=== PATIENT | female | born 1950 | race Caucasian/White ===

== ENCOUNTER 2019-02-09 12:51 | Inpatient (IN) | payer OTHER ==
[2019-02-09 17:22] VITALS: BMI 32.8
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
[2019-02-09] MEDS ORDERED: METHADONE HCL 10 MG TABLET (FOR DETOX USE ONLY) PO ONE (19:23)
[2019-02-09] MEDS ORDERED: cloNIDine HCL 0.1 MG TABLET PO PRN (19:23)
[2019-02-09] MEDS ORDERED: MAGNESIUM HYDROX 2400MG/30ML ORAL SUSPENSION 30 ML CUP PO PRN (19:24)
[2019-02-09] MEDS ORDERED: MENTHOL/PHENOL 1 EACH UD MM PRN (19:24)
[2019-02-09] MEDS ORDERED: MELATONIN 5 MG TABLETS PO PRN (19:24)
[2019-02-09] MEDS ORDERED: hydrOXYzine PAMOATE 25 MG CAPSULE (FP) PO PRN (19:24)
[2019-02-09] MEDS ORDERED: ACETAMINOPHEN 325 MG TABLET (FP) PO PRN (19:24)
[2019-02-09] MEDS ORDERED: IBUPROFEN 400 MG TABLET (FP) PO PRN (19:24)
[2019-02-09] MEDS ORDERED: BISMUTH SUBSALICYLATE 524 MG/30 ML UD PO PRN (19:24)
[2019-02-09] MEDS ORDERED: MAG HYDROX/AL HYDROX/SIMETH 30 ML UNIT-DOSE CUP PO PRN (19:24)
[2019-02-09] MEDS ORDERED: NITROGLYCERIN SUBLINGUAL 1/150 0.4 MG TAB SL PRN (19:27)
[2019-02-09] MEDS ORDERED: NICOTINE 7 MG/24 HOURS TOPICAL PATCH TD SCH (19:30)
--- NOTE | 2019-02-09 20:07 | PN ---
Teaching Attending Note Name of Resident: Basia Montez ATTENDING PHYSICIAN STATEMENT I saw and evaluated the patient. I reviewed the resident's note and discussed the case with the resident. I agree with the resident's findings and plan as documented. SUBJECTIVE: 68 yo with long h/o heroin use, states she has been "skin popping"- uses insulin syringe to place heroin in upper arm. Was recently treated for abd abcess with antibiotics and drainage tube at [facility]- needs to go back for f /u and possible surgery OBJECTIVE: Vital Signs - 24 hr 02/09/19 02/09/19 17:13 17:47 Temperature 97.3 F L 97.3 F L Pulse Rate 75 75 Respiratory 18 18 Rate Blood Pressure 122/80 122/80 abd- soft, area of abscess without induration or signs of infection ASSESSMENT AND PLAN: OUD- methdone detox protocol no evidence of recurrence of abscess- f/u [facility] after discharge
[2019-02-09] MEDS: INSULIN SLIDING SCALE (NOVOLOG) 1 VIAL SQ SCH (21:49)
[2019-02-09] MEDS ORDERED: THIAMINE HCL 100 MG TABLET (FP) PO SCH (22:00)
[2019-02-10] MEDS ORDERED: metFORMIN HCL 500 MG TABLET (FP) PO SCH (07:00)
[2019-02-10] MEDS: INSULIN SLIDING SCALE (NOVOLOG) 1 VIAL SQ SCH (07:55)
[2019-02-10] MEDS ORDERED: METHADONE HCL 5 MG TABLET (FOR DETOX USE ONLY) ONE (08:31)
[2019-02-10] MEDS ORDERED: METHADONE HCL 10 MG TABLET (FOR DETOX USE ONLY) ONE (08:31)
[2019-02-10 09:13] VITALS: BP 148/78; PULSE 79; TEMP 98.2
[2019-02-10] MEDS ORDERED: METHADONE (DETOX) 20 MG, METHADONE (DETOX) 5 MG PO ONE (10:00)
[2019-02-10] MEDS ORDERED: PRENATAL VITAMINS W/ FOLIC ACID TABLET (FP) PO SCH (10:00)
[2019-02-10] MEDS ORDERED: LISINOPRIL 10 MG TABLET (FP) PO SCH (10:00)
--- NOTE | 2019-02-10 10:50 | CONSULT ---
[facility] Psychiatric Consult - Data Date of interview: 02/10/19 Admission source: [facility] Identifying data: [employer] approached patient for psychiatric consultation. Patient stated to staff, " I am leaving today. I do not need to see you. Thankyou." Psychiatric consultation refused.
[2019-02-10 12:32] LABS: HYALINE CASTS 35 /lpf (0-8); URINE APPEARANCE CLOUDY; URINE BACTERIA 175.6 /hpf (NEGATIVE); URINE BILIRUBIN 1+ (NEGATIVE); URINE COLOR DK YELLOW; URINE GLUCOSE (UA) NEGATIVE (NEGATIVE); URINE KETONE NEGATIVE (NEGATIVE); URINE LEUK ESTERASE TRACE (NEGATIVE); URINE NITRITE POSITIVE (NEGATIVE); URINE PROTEIN 1+ (NEGATIVE); URINE RBC 3 /hpf (0-4); URINE WBC 10 /hpf (0-5)
--- NOTE | 2019-02-10 13:17 | DS ---
[facility] Detox Discharge Summary Admission Date: 02/09/19 Discharge Date: 02/10/19 - History Present History: Opioid Dependence Additional Comments: 68 years old female admitted on 02/09/19 for opiate withdrawal sx alert no acute distress ambulating with walker speech clearly denies suicidal ideation insists to leave the detox unit that "family issues" patient refuses to disclosure the matter of family that the patient determines to leave the detox case discussed with the counselor that transportation will be provided from detox to home Pertinent Past History: hypertension diabetes II asthma - Physical Exam Results Vital Signs: Vital Signs Temperature 98.2 F 02/10/19 09:12 Pulse Rate 79 02/10/19 09:12 Respiratory Rate 19 02/10/19 09:12 Blood Pressure 148/78 02/10/19 09:12 O2 Sat by Pulse Oximetry (%) Pertinent Admission Physical Exam Findings: opiate withdrawal sx Laboratory Last Values POC Glucometer 92 UNITS (80-120) 02/09/19 20:26 Urine Color Dk yellow 02/09/19 09:45 Urine Appearance Cloudy 02/09/19 09:45 Urine pH 5.0 (5.0-8.0) D 02/09/19 09:45 Ur Specific [place] 1.037 (1.010-1.035) H 02/09/19 09:45 Urine Protein 1+ (NEGATIVE) H 02/09/19 09:45 Urine Glucose (UA) Negative (NEGATIVE) 02/09/19 09:45 Urine Ketones Negative (NEGATIVE) 02/09/19 09:45 Urine Blood Negative (NEGATIVE) 02/09/19 09:45 Urine Nitrite Positive (NEGATIVE) H 02/09/19 09:45 Urine Bilirubin 1+ (NEGATIVE) H 02/09/19 09:45 Urine Urobilinogen 1.0 mg/dL (0.2-1.0) 02/09/19 09:45 Ur Leukocyte Esterase Trace (NEGATIVE) 02/09/19 09:45 Urine WBC (Auto) 10 /hpf (0-5) 02/09/19 09:45 Urine RBC (Auto) 3 /hpf (0-4) 02/09/19 09:45 Urine Casts (Auto) 35 /lpf (0-8) 02/09/19 09:45 U Epithel Cells (Auto) 14.0 /HPF (0-5/HPF) 02/09/19 09:45 Urine Bacteria (Auto) 175.6 /hpf (NEGATIVE) 02/09/19 09:45 POC Urine HCG, Qual Negative 02/09/19 17:47 lab noted asymptomatic uti - Treatment Hospital Course: Detox Protocol Followed, Responded well Patient has Accepted a Rehab Referral to: [facility] - Medication Discharge Medications: Ambulatory Orders Gabapentin [Neurontin -] 300 mg PO BID #60 capsule 05/21/15 Lisinopril [Prinivil] 10 mg PO DAILY #60 tablet 05/21/15 metFORMIN HCL [Glucophage -] 500 mg PO BID #60 tablet 05/21/15 Nitroglycerin [Nitrostat] 0.4 mg SL ASDIR PRN 11/16/15 Naproxen [Naprosyn -] 500 mg PO BID #14 tablet 01/27/16 - Diagnosis (1) Opioid dependence with withdrawal Status: Acute (2) Asthma Status: Chronic Qualifiers: Asthma severity: mild Asthma persistence: intermittent Asthma complication type: with status asthmaticus Qualified Code(s): J45.22 - Mild intermittent asthma with status asthmaticus (3) Hypertension Status: Chronic Qualifiers: Hypertension type: essential hypertension (4) Nicotine dependence Status: Acute Qualifiers: Nicotine product type: cigarettes Substance use status: in withdrawal Qualified Code(s): F17.213 - Nicotine dependence, cigarettes, with withdrawal (5) Type II diabetes mellitus Status: Chronic Qualifiers: 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
[2019-02-10 15:33] LABS: URINE CRYSTALS CALCIUM OXALATE=1+ /hpf
[2019-02-11] MEDS ORDERED: METHADONE HCL 10 MG TABLET (FOR DETOX USE ONLY) PO ONE (10:00)
[2019-02-12] MEDS ORDERED: METHADONE (DETOX) 10 MG, METHADONE (DETOX) 5 MG PO ONE (10:00)
[2019-02-13] MEDS ORDERED: METHADONE HCL 10 MG TABLET (FOR DETOX USE ONLY) PO ONE (10:00)
[2019-02-14] MEDS ORDERED: METHADONE HCL 5 MG TABLET (FOR DETOX USE ONLY) PO ONE (06:00)
== END 2019-02-10 11:10 | disposition left against medical advice (07) | DRG 894 ==
LOC: YASAS 12:51 → Y3N 19:39
PROVIDERS: ADMIT Surgery; ATTEND Surgery
PROC: HZ2ZZZZ Detoxification Services for Substance Abuse Treatment (ICD-10-PCS; principal; 2019-02-09)
DX: F11.23 Opioid dependence with withdrawal (principal); J45.22 Mild intermittent asthma with status asthmaticus; N39.0 Urinary tract infection, site not specified; F17.213 Nicotine dependence, cigarettes, with withdrawal; F51.05 Insomnia due to other mental disorder; F32.9 Major depressive disorder, single episode, unspecified; I10 Essential (primary) hypertension; E11.42 Type 2 diabetes mellitus with diabetic polyneuropathy; Z79.84 Long term (current) use of oral hypoglycemic drugs; M17.0 Bilateral primary osteoarthritis of knee; R00.0 Tachycardia, unspecified; Z90.710 Acquired absence of both cervix and uterus; Z96.653 Presence of artificial knee joint, bilateral; Z91.14 Patient's other noncompliance with medication regimen
CPT/HCPCS: 81003; 81025; 82962; J0735

== ENCOUNTER 2019-04-14 10:54 | Inpatient (IN) | payer OTHER | END 2019-04-15 14:32 | disposition home or self-care (01) | LOC: YASAS 10:54 → Y6N 16:46 ==

== ENCOUNTER 2019-05-15 12:07 | Inpatient (IN) | payer OTHER ==
[2019-05-15 13:16] VITALS: BMI 32.8
--- NOTE | 2019-05-15 15:00 | HP ---
COWS - Scale Resting Pulse: 0= ID 80 or Below Sweatin= Chills/Flushing Restless Observation: 1= Difficult to Sit Still Pupil Size: 0= Normal to Room Light Bone or Joint Aches: 1= Mild Discomfort Runny Nose/ Eye Tearin= Runny Nose/Eyes GI Upset > 30mins: 3= Vomiting/Diarrhea Tremor Observation: 2= Slight Tremor Visible Yawning Observation: 0= None Anxiety or Irritability: 2=Irritable/Anxious Goose Flesh Skin: 0=Smooth Skin COWS Score: 12 CIWA Score - Admission Criteria OASAS Guidelines: Admission for Medically Managed Detox: Requires at least one of the followin. CIWA greater than 12 2. Seizures within the past 24 hours 3. Delirium tremens within the past 24 hours 4. Hallucinations within the past 24 hours 5. Acute intervention needed for co occurring medical disorder 6. Acute intervention needed for co occurring psychiatric disorder 7. Severe withdrawal that cannot be handled at a lower level of care (continued vomiting, continued diarrhea, abnormal vital signs) requiring intravenous medication and/or fluids 8. Admitting History and Physical - Smoking History Smoking history: Current every day smoker Have you smoked in the past 12 months: Yes Aproximately how many cigarettes per day: 5 - Alcohol/Substance Use Hx Alcohol Use: No Admission ROS S - HPI Chief Complaint: Kathleen Agarwal is 68 year old female presenting for heroin abuse. Allergies/Adverse Reactions: Allergies Allergy/AdvReac Type Severity Reaction Status Date / Time No Known Allergies Allergy Verified 05/15/19 13:09 History of Present Illness: Kathleen Agarwal is 68 year old female presenting for heroin abuse. Heroin: 5 bags daily. Daily user. Endorses IVDU. has had an abscess in her arm several years ago. Denies history of overdoses. Does not have a Narcan kit at home. Does not know how to use one. has been on a methadone program in the past, 3 years prior. Has been to detox and rehab in the past. Medical History: DM, angina, memory problems, HTN Surgical History: hysterectomy, R breast lumpectomy, bilateral knee replacement Psychiatric History: denies Smokin cigarettes per day Social: lives in an apartment, lives with son. Utox: FEN, MOP, OXY, MTD BEE: 0.000 Counseled on returning to her primary care physician for continued management of her chronic medical conditions. 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 Will be admitted for heroin detox with methadone protocol. Exam Limitations: No Limitations - Ebola screening Have you traveled outside of the country in the last 21 days: No Have you had contact with anyone from an Ebola affected area: No Do you have a fever: No - Review of Systems Constitutional: Chills EENT: reports: Tearing, Other (rhinnorhea) Respiratory: reports: No Symptoms reported Cardiac: reports: Lightheadedness GI: reports: Diarrhea, Nausea : reports: No Symptoms Reported Musculoskeletal: reports: Back Pain, Muscle Pain (diffuse), Muscle Weakness Integumentary: reports: No Symptoms Reported Neuro: reports: Headache, Numbness (from diabetic neuropathy, in bilateral feet) Endocrine: reports: No Symptoms Reported Hematology: reports: No Symptoms Reported Psychiatric: reports: Agitated, Anxious Patient History - Patient Medical History Hx Anemia: No Hx Asthma: Yes Hx Chronic Obstructive Pulmonary Disease (COPD): No Hx Cancer: No Hx Cardiac Disorders: No Hx Congestive Heart Failure: No Hx Hypertension: Yes Hx Hypercholesterolemia: No Hx Pacemaker: No HX Cerebrovascular Accident: No Hx Seizures: No Hx Dementia: No Hx Diabetes: No Hx Gastrointestinal Disorders: No Hx Liver Disease: No Hx Genitourinary Disorders: No Hx Sexually Transmitted Disorders: No Hx Renal Disease (ESRD): No Hx Thyroid Disease: No Hx Human Immunodeficiency Virus (HIV): No (NEGATIVE 2014) Hx Hepatitis C: No Hx Depression: Yes Hx Suicide Attempt: No Hx Bipolar Disorder: No Hx Schizophrenia: No - Patient Surgical History Past Surgical History: Yes Hx Neurologic Surgery: No Hx Cataract Extraction: No Hx Cardiac Surgery: No Hx Lung Surgery: No Hx Breast Surgery: Yes (RIGHT BREAST CYST,AT TEENAGE) Hx Breast Biopsy: No Hx Abdominal Surgery: Yes (Hysterectomy at age 31 yrs) Hx Appendectomy: No Hx Cholecystectomy: No Hx Genitourinary Surgery: No Hx Section: No Hx Orthopedic Surgery: Yes (09/2015 bilateral total knee replacement) Hx Hysterectomy: Yes (for fibroid uterus) Anesthesia Reaction: No - PPD History Date: 02/04/18 Results: NEGATIVE - Smoking Cessation Smoking history: Current every day smoker Have you smoked in the past 12 months: Yes Aproximately how many cigarettes per day: 5 Cigars Per Day: 0 Hx Chewing Tobacco Use: No Initiated information on smoking cessation: Yes 'Breaking Loose' booklet given: 05/15/19 - Substances abused Heroin Substance route: Skin popping Frequency: Daily Amount used: 5 bags Age of first use: 15 Date of last use: 05/15/19 Admission Physical Exam S - Vital Signs Vital Signs: Vital Signs - 24 hr 05/15/19 13:10 Temperature 97.3 F L Pulse Rate 66 Respiratory 20 Rate Blood Pressure 139/69 - Physical General Appearance: Yes: Disheveled, Mild Distress HEENTM: Yes: EOMI, Normocephalic, Normal Voice, ISABEL, Pharynx Normal, Other ( dry mucous membranes) Respiratory: Yes: Chest Non-Tender, Lungs Clear, Normal Breath Sounds, No Respiratory Distress, No Accessory Muscle Use Neck: Yes: No masses,lesions,Nodules, Trachea in good position Breast: Yes: Breast Exam Deferred Cardiology: Yes: Regular Rhythm, Regular Rate, S1, S2 Abdominal: Yes: Normal Bowel Sounds, Flat, Soft, Tenderness (noted tenderness in the lower qudrants), Hernia Genitourinary: Yes: Within Normal Limits Back: Yes: Normal Inspection Musculoskeletal: Yes: full range of Motion, Back pain Extremities: Yes: Normal Capillary Refill, Normal Inspection, Normal Range of Motion, Non-Tender 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: 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, Alert, Motor Strength 5/5, Other ( poor gait, requiring rolator) Integumentary: Yes: Normal Color, Dry, Warm - Diagnostic (1) Substance induced mood disorder Current Visit: No Status: Acute (2) Depressive disorder Current Visit: No Status: Chronic (3) History of angina Current Visit: No Status: Chronic (4) Hypertension Current Visit: No Status: Chronic Qualifiers: Hypertension type: essential hypertension (5) Low back pain on right side with sciatica Current Visit: No Status: Chronic (6) MDD (major depressive disorder), recurrent episode, moderate Current Visit: No Status: Chronic (7) Major depression, recurrent Current Visit: No Status: Chronic Qualifiers: Major depression episode severity: unspecified Qualified Code(s): F33.9 - Major depressive disorder, recurrent, unspecified (8) Nicotine dependence Current Visit: No Status: Chronic Qualifiers: Nicotine product type: cigarettes Substance use status: uncomplicated Qualified Code(s): F17.210 - Nicotine dependence, cigarettes, uncomplicated (9) Opioid dependence with withdrawal Current Visit: No Status: Chronic (10) Type II diabetes mellitus Current Visit: No Status: Chronic Qualifiers: Diabetes mellitus intermediate frame tender insulin use: unspecified [facility] insulin use status Diabetes mellitus complication status: with neurologic complications Diabetes mellitus complication detail: with unspecified neuropathy Qualified Code(s): E11.40 - Type 2 diabetes mellitus with diabetic neuropathy, unspecified (11) Use of cane as ambulatory aid Current Visit: No Status: Chronic (12) S/P hysterectomy Current Visit: No Status: Resolved Cleared for Admission [facility] - Detox or Rehab [facility] Level of Care: Medically Managed Detox Regimen/Protocol: Methadone Breathalyzer - Breathalyzer Breathalyzer: 0 Urine Drug Screen - Test Device Lot number: [id number] Expiration date: 12/26/20 - Control Is test valid?: Yes - Results Drug screen NEGATIVE: No Urine drug screen results: FEN-Fentanyl, MOP-Opiates, OXY-Oxycodone, MTD- Methadone Inpatient Rehab Admission - Rehab Decision to Admit Inpatient rehab admission?: No
--- NOTE | 2019-05-15 15:26 | PN ---
"Teaching Attending Note Name of Resident: Sky Andrade ATTENDING PHYSICIAN STATEMENT I saw and evaluated the patient. I reviewed the resident's note and discussed the case with the resident. I agree with the resident's findings and plan as documented. SUBJECTIVE: 68 y.o. female pt requesting detox from heroin use , reports decreased effects with same use 1-3 bags heroin via skin popping , latest use yesterday , current symptoms as above, reports she ran out of meds 4 days ago , does not have a current PCP , previous one left , does not have psychiatric care, denies SI / HI . Prior MMTP > 1 year ago MDD 90 mg Medical History: DM, angina, memory problems, HTN Surgical History: hysterectomy, R breast lumpectomy, bilateral knee replacement OBJECTIVE: This report was requested by: Chika Perry | Reference #: [id number] Others' Prescriptions Patient Name: Kathleen Agarwal Date: 1950 [address] [place] [address] Sex: Female Rx Written Rx Dispensed Drug Quantity Days Supply Prescriber Name 06/23/2018 06/23/2018 zolpidem tartrate 10 mg tablet 30 30 Lauro , Sherrell 06/23/2018 06/23/2018 tramadol hcl 50 mg tablet 90 15 Lauro, Sherrlel Patient Name: Kathleen Agarwal Date: 1950 Address: [address] [place] [address] Sex: Female Rx Written Rx Dispensed Drug Quantity Days Supply Prescriber Name 06/04/2018 06/04/2018 oxycodone-acetaminophen 5-325 mg tablet 56 14 Lauro, Sherrell 05/22/2018 05/22/2018 tramadol hcl 50 mg tablet 60 10 Lauro, Sherrell 05/22/2018 05/22/2018 zolpidem tartrate 10 mg tablet 30 30 Lauro , Sherrell Vital Signs - 24 hr 05/15/19 13:10 Temperature 97.3 F L Pulse Rate 66 Respiratory 20 Rate Blood Pressure 139/69 ASSESSMENT AND PLAN: Opioid use disorder - Methadone detox ."
[2019-05-15] MEDS ORDERED: MAGNESIUM CITRATE 300 ML BOTTLE PO PRN (15:32)
[2019-05-15] MEDS ORDERED: MENTHOL/PHENOL 1 EACH UD MM PRN (15:32)
[2019-05-15] MEDS ORDERED: MAGNESIUM HYDROX 2400MG/30ML ORAL SUSPENSION 30 ML CUP PO PRN (15:32)
[2019-05-15] MEDS ORDERED: ACETAMINOPHEN 325 MG TABLET (FP) PO PRN (15:32)
[2019-05-15] MEDS ORDERED: MAG HYDROX/AL HYDROX/SIMETH 30 ML UNIT-DOSE CUP PO PRN (15:32)
[2019-05-15] MEDS ORDERED: NITROGLYCERIN SUBLINGUAL 1/150 0.4 MG TAB SL PRN (15:37)
[2019-05-15] MEDS ORDERED: METHADONE HCL 10 MG TABLET (FOR DETOX USE ONLY) PO ONE (17:15)
[2019-05-15] MEDS: metFORMIN HCL 500 MG TABLET (FP) PO SCH (17:17)
[2019-05-15] MEDS: cloNIDine HCL 0.1 MG TABLET PO PRN (17:20)
[2019-05-15] MEDS: hydrOXYzine PAMOATE 25 MG CAPSULE (FP) PO PRN (17:20)
[2019-05-15] MEDS: INSULIN SLIDING SCALE (NOVOLOG) 1 VIAL SQ SCH ×2 (17:22→22:20)
[2019-05-15] MEDS: BISMUTH SUBSALICYLATE 524 MG/30 ML UD PO PRN (17:44)
[2019-05-15] MEDS: MELATONIN 5 MG TABLETS PO PRN (22:18)
[2019-05-15] MEDS: THIAMINE HCL 100 MG TABLET (FP) PO SCH (22:18)
--- NOTE | 2019-05-15 23:16 | PN ---
[facility] Progress Note Note: Patient c/o multiple fingersticks. Patient on metformin BID. BGM's reviewed. CMP POC Glucometer 113 UNITS (80-120) 05/15/19 21:41 Previous values 84 and 117. Will decrease BGMs to BID.
[2019-05-16] MEDS: INSULIN SLIDING SCALE (NOVOLOG) 1 VIAL SQ SCH ×4 (07:48→23:03)
[2019-05-16] MEDS: metFORMIN HCL 500 MG TABLET (FP) PO SCH ×2 (07:48→16:49)
[2019-05-16] MEDS ORDERED: METHADONE HCL 5 MG TABLET (FOR DETOX USE ONLY) PO ONE (10:00)
[2019-05-16] MEDS: LISINOPRIL 20 MG TABLET (FP) PO SCH (10:16)
[2019-05-16] MEDS: NICOTINE 14 MG/24 HOURS TOPICAL PATCH TD SCH (10:16)
[2019-05-16] MEDS: PRENATAL VITAMINS W/ FOLIC ACID TABLET (FP) PO SCH (10:16)
[2019-05-16] MEDS: cloNIDine HCL 0.1 MG TABLET PO PRN ×2 (10:19→21:52)
[2019-05-16] MEDS: hydrOXYzine PAMOATE 25 MG CAPSULE (FP) PO PRN ×2 (10:19→17:20)
--- NOTE | 2019-05-16 14:01 | PN ---
[facility] COWS - Scale Resting Pulse: 1= [place] 81-100 Sweatin= Chills/Flushing Restless Observation: 1= Difficult to Sit Still Pupil Size: 1= Pupils >than Normal Bone or Joint Aches: 1= Mild Discomfort Runny Nose/ Eye Tearin= Nasal Congestion GI Upset > 30mins: 1= Stomach Cramp Tremor Observation of Outstretched Hands: 1= Tremor [place], Not Seen Yawning Observation: 1= 1-2x During Session Anxiety or Irritability: 1=Feels Anxious/Irritable Goose Flesh Skin: 3=Piloerection COWS Score: 13 [facility] Progress Note (SOAP) Subjective: Pt admitted for heroin detox, says has stomach cramps. O: Vital Signs - 24 hr 05/15/19 05/15/19 05/16/19 18:10 22:15 00:38 Temperature 97.0 F L 97.9 F Pulse Rate 69 63 Respiratory 18 18 18 Rate Blood Pressure 124/70 131/75 05/16/19 05/16/19 05/16/19 03:30 06:23 09:47 Temperature 97 F L 97.1 F L Pulse Rate 67 84 Respiratory 18 18 16 Rate Blood Pressure 140/74 130/76 05/16/19 13:28 Temperature 97.7 F Pulse Rate 52 L Respiratory 18 Rate Blood Pressure 115/65 Laboratory Tests 05/15/19 05/15/19 05/15/19 16:05 17:16 21:41 POC Glucometer 84 117 113 05/16/19 05:22 POC Glucometer 95 a/p: OUD- continue detox
[2019-05-16 18:47] LABS: EPI CELLS 3.8 /HPF (0-5/HPF); HYALINE CASTS 0 /lpf (0-8); PH,URINE 8.5 (5.0-8.0); URINE APPEARANCE CLEAR; URINE BACTERIA 50.4 /hpf (NEGATIVE); URINE BILIRUBIN NEGATIVE (NEGATIVE); URINE COLOR YELLOW; URINE GLUCOSE (UA) NEGATIVE (NEGATIVE); URINE KETONE NEGATIVE (NEGATIVE); URINE LEUK ESTERASE 1+ (NEGATIVE); URINE NITRITE NEGATIVE (NEGATIVE); URINE PROTEIN NEGATIVE (NEGATIVE); URINE RBC 0 /hpf (0-4); URINE UROBILINOGEN 0.2 mg/dL (0.2-1.0); URINE WBC 2 /hpf (0-5)
[2019-05-16] MEDS: THIAMINE HCL 100 MG TABLET (FP) PO SCH (21:17)
[2019-05-16] MEDS: METHOCARBAMOL 500 MG TABLET PO PRN (21:17)
[2019-05-16] MEDS: MELATONIN 5 MG TABLETS PO PRN (21:50)
[2019-05-16] MEDS: ACETAMINOPHEN 325 MG TABLET (FP) PO PRN (21:51)
[2019-05-16] MEDS: BISMUTH SUBSALICYLATE 524 MG/30 ML UD PO PRN (21:53)
[2019-05-17] MEDS: hydrOXYzine PAMOATE 25 MG CAPSULE (FP) PO PRN ×3 (00:15→17:42)
[2019-05-17] MEDS: METHOCARBAMOL 500 MG TABLET PO PRN ×3 (05:38→22:37)
[2019-05-17] MEDS: IBUPROFEN 400 MG TABLET (FP) PO PRN ×2 (05:39→17:43)
[2019-05-17] MEDS: metFORMIN HCL 500 MG TABLET (FP) PO SCH ×2 (07:02→17:41)
[2019-05-17] MEDS: INSULIN SLIDING SCALE (NOVOLOG) 1 VIAL SQ SCH ×4 (07:03→22:39)
[2019-05-17] MEDS ORDERED: METHADONE HCL 10 MG TABLET (FOR DETOX USE ONLY) PO ONE (10:00)
--- NOTE | 2019-05-17 10:16 | PN ---
BHS COWS - Scale Resting Pulse: 0= [place] 80 or Below Sweatin= Chills/Flushing Restless Observation: 0= Sits Still Pupil Size: 1= Pupils >than Normal Bone or Joint Aches: 1= Mild Discomfort Runny Nose/ Eye Tearin= None GI Upset > 30mins: 1= Stomach Cramp Tremor Observation of Outstretched Hands: 2= Slight Tremor Visible Yawning Observation: 1= 1-2x During Session Anxiety or Irritability: 2=Irritable/Anxious Goose Flesh Skin: 0=Smooth Skin COWS Score: 9 BHS Progress Note (SOAP) Subjective: doing well with methadone detox regimen ambulating with walker on hallway steady gait denies dizziness patient demands belsomia for insomnia that psychiatrist prescribed for her and slept well at night psychiatrist referral Objective: 05/17/19 10:14 Vital Signs Temperature 96.7 F L 05/17/19 06:41 Pulse Rate 50 L 05/17/19 06:41 Respiratory Rate 18 05/17/19 06:41 Blood Pressure 119/62 05/17/19 06:41 O2 Sat by Pulse Oximetry (%) Laboratory Last Values POC Glucometer 93 UNITS (80-120) 05/17/19 05:38 Urine Color Yellow 05/16/19 10:11 Urine Appearance Clear 05/16/19 10:11 Urine pH 8.5 (5.0-8.0) H D 05/16/19 10:11 Ur Specific [place] 1.008 (1.010-1.035) L 05/16/19 10:11 Urine Protein Negative (NEGATIVE) 05/16/19 10:11 Urine Glucose (UA) Negative (NEGATIVE) 05/16/19 10:11 Urine Ketones Negative (NEGATIVE) 05/16/19 10:11 Urine Blood Negative (NEGATIVE) 05/16/19 10:11 Urine Nitrite Negative (NEGATIVE) 05/16/19 10:11 Urine Bilirubin Negative (NEGATIVE) 05/16/19 10:11 Urine Urobilinogen 0.2 mg/dL (0.2-1.0) 05/16/19 10:11 Ur Leukocyte Esterase 1+ (NEGATIVE) H 05/16/19 10:11 Urine WBC (Auto) 2 /hpf (0-5) 05/16/19 10:11 Urine RBC (Auto) 0 /hpf (0-4) 05/16/19 10:11 Urine Casts (Auto) 0 /lpf (0-8) 05/16/19 10:11 U Epithel Cells (Auto) 3.8 /HPF (0-5/HPF) 05/16/19 10:11 Urine Bacteria (Auto) 50.4 /hpf (NEGATIVE) 05/16/19 10:11 lab noted encourage oral fluid and personal hygiene Assessment: 05/17/19 10:15 opiate withdrawal sx Plan: continue methadone detox regimen discuss medication assisted treatment program [facility] pick[facility] narcan from pharmacy
[2019-05-17] MEDS: LISINOPRIL 20 MG TABLET (FP) PO SCH (10:31)
[2019-05-17] MEDS: PRENATAL VITAMINS W/ FOLIC ACID TABLET (FP) PO SCH (10:31)
[2019-05-17] MEDS: NICOTINE 14 MG/24 HOURS TOPICAL PATCH TD SCH (10:31)
[2019-05-17] MEDS: ACETAMINOPHEN 325 MG TABLET (FP) PO PRN ×2 (10:34→18:50)
[2019-05-17 10:58] LABS: BASO % 0.6 % (0-2.0); EOS % 2.8 % (0-4.5); HEMATOCRIT 33.7 % (32.4-45.2); LYMPH % 20.3 % (8-40); MCH 24.2 pg (25.7-33.7); MCHC 32.7 g/dl (32.0-36.0); MEAN CELL VOLUME 74.1 fl (80-96); MEAN PLT VOLUME 8.1 fl (7.5-11.1); MONO % 8.8 % (3.8-10.2); NEUT % 67.5 % (42.8-82.8); PLATELET COUNT 404 K/MM3 (134-434); RBC 4.54 M/mm3 (3.60-5.2); RDW 16.2 % (11.6-15.6); WHITE BLOOD COUNT 8.4 K/mm3 (4.0-10.0)
[2019-05-17 11:11] LABS: ALBUMIN 2.7 g/dl (3.4-5.0); BILIRUBIN,TOTAL 0.4 mg/dL (0.2-1); BLOOD UREA NITROGEN 18.2 mg/dL (7-18); CALCIUM 8.8 mg/dL (8.5-10.1); CREATININE 0.7 mg/dL (0.55-1.3); POTASSIUM 4.4 mmol/L (3.5-5.1); TOT PROT 6.3 g/dl (6.4-8.2)
[2019-05-17] MEDS ORDERED: DICYCLOMINE HCL 10 MG CAPSULE PO ONE (11:49)
[2019-05-17] MEDS ORDERED: NICOTINE POLACRILEX 2 MG GUM BUC PRN (11:49)
[2019-05-17] MEDS ORDERED: ONDANSETRON *ODT* 4 MG TABLET SL ONE (11:49)
[2019-05-17] MEDS: MELATONIN 5 MG TABLETS PO PRN (22:37)
[2019-05-17] MEDS: THIAMINE HCL 100 MG TABLET (FP) PO SCH (22:39)
[2019-05-18] MEDS ORDERED: METHADONE HCL 5 MG TABLET (FOR DETOX USE ONLY) PO ONE (06:00)
[2019-05-18] MEDS: IBUPROFEN 400 MG TABLET (FP) PO PRN (06:02)
[2019-05-18] MEDS: metFORMIN HCL 500 MG TABLET (FP) PO SCH (06:02)
[2019-05-18] MEDS: INSULIN SLIDING SCALE (NOVOLOG) 1 VIAL SQ SCH ×2 (06:42→11:05)
[2019-05-18 07:20] VITALS: TEMP 97.1
[2019-05-18 09:10] VITALS: BP 129/79; PULSE 76
[2019-05-18] MEDS: BISMUTH SUBSALICYLATE 524 MG/30 ML UD PO PRN (09:13)
--- NOTE | 2019-05-18 10:54 | DS ---
[facility] Detox Discharge Summary Admission Date: 05/15/19 Discharge Date: 05/18/19 - History Present History: Opioid Dependence Additional Comments: 68 years old female admitted on 05/15/19 for opiate withdrawal sx management did well with methadone detox regimen no complication through out the detox stay patient is alert oriented x 3 ambulating with walker steady gait cardiac S1S2 regular rate rhythm respiratory clear lung bilaterally on auscultation abdomen soft round obese no rebound tenderness - Physical Exam Results Vital Signs: Vital Signs Temperature 97.1 F L 05/18/19 09:10 Pulse Rate 76 05/18/19 09:10 Respiratory Rate 18 05/18/19 09:10 Blood Pressure 129/79 05/18/19 09:10 O2 Sat by Pulse Oximetry (%) Pertinent Admission Physical Exam Findings: opiate withdrawal sx Laboratory Last Values WBC 8.4 K/mm3 (4.0-10.0) 05/17/19 08:00 RBC 4.54 M/mm3 (3.60-5.2) 05/17/19 08:00 Hgb 11.0 GM/dL (10.7-15.3) 05/17/19 08:00 Hct 33.7 % (32.4-45.2) 05/17/19 08:00 MCV 74.1 fl (80-96) L 05/17/19 08:00 MCH 24.2 pg (25.7-33.7) L 05/17/19 08:00 MCHC 32.7 g/dl (32.0-36.0) 05/17/19 08:00 RDW 16.2 % (11.6-15.6) H 05/17/19 08:00 Plt Count 404 K/MM3 (134-434) 05/17/19 08:00 MPV 8.1 fl (7.5-11.1) 05/17/19 08:00 Absolute Neuts (auto) 5.7 K/mm3 (1.5-8.0) 05/17/19 08:00 Neutrophils % 67.5 % (42.8-82.8) 05/17/19 08:00 Lymphocytes % 20.3 % (8-40) 05/17/19 08:00 Monocytes % 8.8 % (3.8-10.2) 05/17/19 08:00 Eosinophils % 2.8 % (0-4.5) 05/17/19 08:00 Basophils % 0.6 % (0-2.0) 05/17/19 08:00 Nucleated RBC % 0 % (0-0) 05/17/19 08:00 Sodium 141 mmol/L (136-145) 05/17/19 08:00 Potassium 4.4 mmol/L (3.5-5.1) 05/17/19 08:00 Chloride 105 mmol/L (98-107) 05/17/19 08:00 Carbon Dioxide 27 mmol/L (21-32) 05/17/19 08:00 Anion Gap 9 MMOL/L (8-16) 05/17/19 08:00 BUN 18.2 mg/dL (7-18) H 05/17/19 08:00 Creatinine 0.7 mg/dL (0.55-1.3) 05/17/19 08:00 Est GFR (CKD-EPI)AfAm 103.91 05/17/19 08:00 Est GFR (CKD-EPI)NonAf 89.65 05/17/19 08:00 POC Glucometer 93 UNITS (80-120) 05/17/19 05:38 Random Glucose 101 mg/dL (74-106) 05/17/19 08:00 Calcium 8.8 mg/dL (8.5-10.1) 05/17/19 08:00 Total Bilirubin 0.4 mg/dL (0.2-1) 05/17/19 08:00 AST 10 U/L (15-37) L 05/17/19 08:00 ALT 9 U/L (13-61) L 05/17/19 08:00 Alkaline Phosphatase 69 U/L (45-117) 05/17/19 08:00 Total Protein 6.3 g/dl (6.4-8.2) L 05/17/19 08:00 Albumin 2.7 g/dl (3.4-5.0) L 05/17/19 08:00 Urine Color Yellow 05/16/19 10:11 Urine Appearance Clear 05/16/19 10:11 Urine pH 8.5 (5.0-8.0) H D 05/16/19 10:11 Ur Specific [place] 1.008 (1.010-1.035) L 05/16/19 10:11 Urine Protein Negative (NEGATIVE) 05/16/19 10:11 Urine Glucose (UA) Negative (NEGATIVE) 05/16/19 10:11 Urine Ketones Negative (NEGATIVE) 05/16/19 10:11 Urine Blood Negative (NEGATIVE) 05/16/19 10:11 Urine Nitrite Negative (NEGATIVE) 05/16/19 10:11 Urine Bilirubin Negative (NEGATIVE) 05/16/19 10:11 Urine Urobilinogen 0.2 mg/dL (0.2-1.0) 05/16/19 10:11 Ur Leukocyte Esterase 1+ (NEGATIVE) H 05/16/19 10:11 Urine WBC (Auto) 2 /hpf (0-5) 05/16/19 10:11 Urine RBC (Auto) 0 /hpf (0-4) 05/16/19 10:11 Urine Casts (Auto) 0 /lpf (0-8) 05/16/19 10:11 U Epithel Cells (Auto) 3.8 /HPF (0-5/HPF) 05/16/19 10:11 Urine Bacteria (Auto) 50.4 /hpf (NEGATIVE) 05/16/19 10:11 lab noted - Treatment Hospital Course: Detox Protocol Followed, Detoxed Safely, Responded well, Discharged Condition Good, Rehab Referral Accepted Patient has Accepted [facility] Referral [facility] - Medication Discharge Medications: Ambulatory Orders metFORMIN HCL [Glucophage -] 500 mg PO BID #60 tablet 05/21/15 Nitroglycerin [Nitrostat] 0.4 mg SL ASDIR PRN 11/16/15 Lisinopril [Prinivil -] 40 mg PO DAILY 04/14/19 Naloxone HCl [Narcan] 4 mg NS ASDIR PRN #1 spray 05/17/19 - Diagnosis (1) Walker as ambulation aid Current Visit: Yes Status: Chronic (2) Substance induced mood disorder Current Visit: No Status: Suspected (3) Asthma Current Visit: Yes Status: Chronic Qualifiers: Asthma severity: mild Asthma persistence: intermittent Asthma complication type: with status asthmaticus Qualified Code(s): J45.22 - Mild intermittent asthma with status asthmaticus (4) Hypertension Current Visit: Yes Status: Chronic Qualifiers: Hypertension type: essential hypertension (5) Nicotine dependence Current Visit: Yes Status: Acute Qualifiers: Nicotine product type: cigarettes Substance use status: in withdrawal Qualified Code(s): F17.213 - Nicotine dependence, cigarettes, with withdrawal (6) Opioid dependence with withdrawal Current Visit: Yes Status: Acute - AMA Did Patient Leave Against Medical Advice: No
[2019-05-18] MEDS: NICOTINE 14 MG/24 HOURS TOPICAL PATCH TD SCH (11:05)
[2019-05-18] MEDS: PRENATAL VITAMINS W/ FOLIC ACID TABLET (FP) PO SCH (11:05)
[2019-05-18] MEDS: LISINOPRIL 20 MG TABLET (FP) PO SCH (11:05)
== END 2019-05-18 09:19 | disposition home or self-care (01) | DRG 897 ==
LOC: YASAS 12:07 → Y3N 16:01
PROVIDERS: ADMIT Allergy & Immunology; ATTEND Allergy & Immunology
PROC: HZ2ZZZZ Detoxification Services for Substance Abuse Treatment (ICD-10-PCS; principal; 2019-05-15)
DX: F11.23 Opioid dependence with withdrawal (principal); F33.1 Major depressive disorder, recurrent, moderate; J45.22 Mild intermittent asthma with status asthmaticus; F17.210 Nicotine dependence, cigarettes, uncomplicated; F19.24 Other psychoactive substance dependence with psychoactive substance-induced mood disorder; I10 Essential (primary) hypertension; E11.9 Type 2 diabetes mellitus without complications; Z79.84 Long term (current) use of oral hypoglycemic drugs; G47.00 Insomnia, unspecified; M54.41 Lumbago with sciatica, right side; Z96.653 Presence of artificial knee joint, bilateral; Z99.89 Dependence on other enabling machines and devices; Z86.79 Personal history of other diseases of the circulatory system
CPT/HCPCS: 36415; 80053; 81003; 82962; 85025; J0735; Q0162

== ENCOUNTER 2020-02-12 10:29 | Inpatient (IN) | payer OTHER ==
--- NOTE | 2020-02-12 12:00 | BHS.RME ---
Substance Use & Tx History - Substance Use History Heroin Substance amount: 4-5 bags Frequency of use: Daily Substance route: Injection (ex: intravenous or skin popping) Date of Last Use: 02/11/20 Nicotine Substance amount: 4 ciggs Frequency of use: Daily Substance route: Smoking Date of Last Use: 02/12/20 Physical/Psych/Mental Status - Behavior General Behavior: Increased activity (restlessness, agitation) Eye Contact: Normal - Cooperativeness Cooperativeness: Cooperative - Thinking Thought Processes: Tight, Logical, Goal Directed Thought content: Future oriented - Physical Health Problems Is patient presently having any pain?: No Does patient presently have any injuries (include location): No Does patient currently have a fever: No Is patient : No COWS - Scale Resting Pulse: 0= [place] 80 or Below Sweatin= Chills/Flushing Restless Observation: 3= Extraneous Movement Pupil Size: 1= Pupils >than Normal Bone or Joint Aches: 2= Severe Diffuse Aches Runny Nose/ Eye Tearin= Nasal Congestion GI Upset > 30mins: 1= Stomach Cramp Tremor Observation: 1= Tremor [place], Not Seen Yawning Observation: 1= 1-2x During Session Anxiety or Irritability: 1=Feels Anxious/Irritable Goose Flesh Skin: 0=Smooth Skin COWS Score: 12
--- NOTE | 2020-02-12 12:06 | HP ---
COWS - Scale Resting Pulse: 0= [place] 80 or Below Sweatin= Chills/Flushing Restless Observation: 3= Extraneous Movement Pupil Size: 1= Pupils >than Normal Bone or Joint Aches: 2= Severe Diffuse Aches Runny Nose/ Eye Tearin= Nasal Congestion GI Upset > 30mins: 1= Stomach Cramp Tremor Observation: 1= Tremor [place], Not Seen Yawning Observation: 1= 1-2x During Session Anxiety or Irritability: 1=Feels Anxious/Irritable Goose Flesh Skin: 0=Smooth Skin COWS Score: 12 CIWA Score - Admission Criteria OASAS Guidelines: Admission for Medically Managed Detox: Requires at least one of the followin. CIWA greater than 12 2. Seizures within the past 24 hours 3. Delirium tremens within the past 24 hours 4. Hallucinations within the past 24 hours 5. Acute intervention needed for co occurring medical disorder 6. Acute intervention needed for co occurring psychiatric disorder 7. Severe withdrawal that cannot be handled at a lower level of care (continued vomiting, continued diarrhea, abnormal vital signs) requiring intravenous medication and/or fluids 8. Admitting History and Physical - Admission Chief Complaint: " I need to stop using." History of Present Illness: 69 year old female with history of opioid dependence with withdrawal. Heroin: 4-5 bags heroin daily, skin popping, started at age 15 and last used 02/11/20 Nicotine: 4 ciggs daily, smoking since age 15 and last used today. PMH: DM, HTN, Angina, Arthritis, Turmor intestinal surgery with resection and colostomy 2 weeks ago Psurg: Intestinal resection with colostomy, hysterectomy, Breast Bx, B/L Knee replacement Psych: None Lives in [facility], no legal issues pending. COWS=12 Urine Tox: FEN, MTD, BZO, MOP denies others, says they propably cut it with other substances History Source: Patient Limitations to Obtaining History: No Limitations - Past Medical History Cardiovascular: Yes: HTN - Smoking History Smoking history: Current every day smoker Have you smoked in the past 12 months: Yes Aproximately how many cigarettes per day: 5 - Alcohol/Substance Use Hx Alcohol Use: No Admission ROS BHS - HPI Allergies/Adverse Reactions: Allergies Allergy/AdvReac Type Severity Reaction Status Date / Time No Known Allergies Allergy Verified 05/15/19 13:09 Exam Limitations: No Limitations - Ebola screening Have you traveled outside of the country in the last 21 days: No Have you had contact with anyone from an Ebola affected area: No Have you been sick,other than usual withdrawal symptoms: No Do you have a fever: No - Review of Systems Constitutional: Chills, Diaphoresis EENT: reports: No Symptoms Reported Respiratory: reports: No Symptoms reported Cardiac: reports: No Symptoms Reported GI: reports: No Symptoms Reported : reports: No Symptoms Reported Musculoskeletal: reports: No Symptoms Reported Integumentary: reports: No Symptoms Reported Neuro: reports: No Symptoms reported Endocrine: reports: No Symptoms Reported Hematology: reports: No Symptoms Reported Psychiatric: reports: Judgement Intact, Mood/Affect Appropiate, Orientated x3, Agitated, Anxious Other Systems: Reviewed and Negative Patient History - Patient Medical History Hx Anemia: No Hx Asthma: No Hx Chronic Obstructive Pulmonary Disease (COPD): No Hx Cancer: No Hx Cardiac Disorders: No Hx Congestive Heart Failure: No Hx Hypertension: Yes Hx Hypercholesterolemia: No Hx Pacemaker: No HX Cerebrovascular Accident: No Hx Seizures: Yes (seizure x1 in 2018) Hx Dementia: No Hx Diabetes: Yes (BGM 84mg/dl) Hx Gastrointestinal Disorders: No Hx Liver Disease: No Hx Genitourinary Disorders: No Hx Sexually Transmitted Disorders: No Hx Renal Disease (ESRD): No Hx Thyroid Disease: No Hx Human Immunodeficiency Virus (HIV): No (NEGATIVE 2014) Hx Hepatitis C: No Hx Depression: Yes Hx Suicide Attempt: No Hx Bipolar Disorder: No Hx Schizophrenia: No - Patient Surgical History Past Surgical History: Yes Hx Neurologic Surgery: No Hx Cataract Extraction: No Hx Cardiac Surgery: No Hx Lung Surgery: No Hx Breast Surgery: Yes (RIGHT BREAST CYST,AT TEENAGE) Hx Breast Biopsy: No Hx Abdominal Surgery: Yes (Hysterectomy at age 31 yrs) Hx Appendectomy: No Hx Cholecystectomy: No Hx Genitourinary Surgery: No Hx Section: No Hx Orthopedic Surgery: Yes (09/2015 bilateral total knee replacement) Hx Hysterectomy: Yes (for fibroid uterus) Anesthesia Reaction: No - PPD History Previous Implant?: Yes Documented Results: Negative w/proof Implanted On Prior R Admission?: Yes Date: 05/17/19 Results: NEGATIVE PPD to be Administered?: No - Smoking Cessation Smoking history: Current every day smoker Have you smoked in the past 12 months: Yes Aproximately how many cigarettes per day: 5 Cigars Per Day: 0 Hx Chewing Tobacco Use: No Initiated information on smoking cessation: Yes 'Breaking Loose' booklet given: 02/12/20 - Substances abused Heroin Substance route: Skin popping Amount used: 4-5 bags Age of first use: 15 Date of last use: 02/11/20 Admission Physical Exam BHS - Physical General Appearance: Yes: Mild Distress, Tremorous, Irritable, Sweating, Anxious HEENTM: Yes: EOMI, Hearing grossly Normal, Normal ENT Inspection, Normocephalic, Normal Voice, ISABEL, Pharynx Normal, Tm's normal Respiratory: Yes: Chest Non-Tender, Lungs Clear, Normal Breath Sounds, No Respiratory Distress, No Accessory Muscle Use Neck: Yes: No masses,lesions,Nodules, Supple, Trachea in good position Breast: Yes: Breast Exam Deferred Cardiology: Yes: Regular Rhythm, Regular Rate, S1, S2 Abdominal: Yes: Normal Bowel Sounds, Non Tender, Flat, Soft Genitourinary: Yes: Within Normal Limits Back: Yes: Normal Inspection Musculoskeletal: Yes: full range of Motion, Gait Steady, Pelvis Stable Extremities: Yes: Normal Capillary Refill, Normal Inspection 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: wallpaper cleaner II-XII NML intact, Fully Oriented, Alert, Motor Strength 5/5, Normal Mood/Affect, Normal Response Integumentary: Yes: Normal Color, Dry, Warm Lymphatic: Yes: Within Normal Limits - Diagnostic (1) S/P small bowel resection Current Visit: Yes Status: Acute (2) Nicotine dependence Current Visit: Yes Status: Acute Qualifiers: Nicotine product type: cigarettes Substance use status: in withdrawal Qualified Code(s): F17.213 - Nicotine dependence, cigarettes, with withdrawal (3) Opioid dependence with withdrawal Current Visit: Yes Status: Acute (4) Asthma Current Visit: Yes Status: Chronic Qualifiers: Asthma severity: mild Asthma persistence: intermittent Asthma complication type: with status asthmaticus Qualified Code(s): J45.22 - Mild intermittent asthma with status asthmaticus (5) History of angina Current Visit: Yes Status: Chronic (6) Hypertension Current Visit: Yes Status: Chronic Qualifiers: Hypertension type: essential hypertension (7) Walker as ambulation aid Current Visit: Yes Status: Chronic Screened but not Admitted - Documentation of Visit Screened but not Admitted: No Breathalyzer - Breathalyzer Breathalyzer: 0 Urine Drug Screen - Test Device Lot number: [id number] Expiration date: 12/26/20 - Control Is test valid?: Yes - Results Drug screen NEGATIVE: No Urine drug screen results: FEN-Fentanyl, MOP-Opiates, OXY-Oxycodone, MTD- Methadone Inpatient Rehab Admission - Rehab Decision to Admit Inpatient rehab admission?: No
[2020-02-12 12:08] VITALS: BMI 27.5
[2020-02-12] MEDS ORDERED: cloNIDine HCL 0.1 MG TABLET PO PRN (12:18)
[2020-02-12] MEDS ORDERED: ACETAMINOPHEN 325 MG TABLET (FP) PO PRN (12:18)
[2020-02-12] MEDS ORDERED: MAGNESIUM CITRATE 300 ML BOTTLE PO PRN (12:18)
[2020-02-12] MEDS ORDERED: BISMUTH SUBSALICYLATE 524 MG/30 ML UD PO PRN (12:18)
[2020-02-12] MEDS ORDERED: IBUPROFEN 400 MG TABLET (FP) PO PRN (12:18)
[2020-02-12] MEDS ORDERED: MAG HYDROX/AL HYDROX/SIMETH 30 ML UNIT-DOSE CUP PO PRN (12:18)
[2020-02-12] MEDS ORDERED: METHADONE HCL 10 MG TABLET (FOR DETOX USE ONLY) PO ONE (12:18)
[2020-02-12] MEDS ORDERED: MAGNESIUM HYDROX 2400MG/30ML ORAL SUSPENSION 30 ML CUP PO PRN (12:18)
[2020-02-12] MEDS ORDERED: MENTHOL/PHENOL 1 EACH UD MM PRN (12:18)
[2020-02-12] MEDS ORDERED: ONDANSETRON *ODT* 4 MG TABLET SL ONE (12:18)
[2020-02-12] MEDS ORDERED: NICOTINE POLACRILEX 2 MG GUM BUC PRN (12:18)
[2020-02-12] MEDS ORDERED: NITROGLYCERIN SUBLINGUAL 1/150 0.4 MG TAB SL PRN (12:20)
[2020-02-12] MEDS: PRENATAL VITAMINS W/ FOLIC ACID TABLET (FP) PO SCH (13:35)
[2020-02-12] MEDS: NICOTINE 7 MG/24 HOURS TOPICAL PATCH TD SCH (13:35)
[2020-02-12] MEDS: hydrOXYzine PAMOATE 25 MG CAPSULE (FP) PO SCH ×3 (13:39→23:00)
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
[2020-02-12] MEDS: metFORMIN HCL 500 MG TABLET (FP) PO SCH (17:14)
[2020-02-12 17:27] LABS: HEMATOCRIT 33.6 % (32.4-45.2); HEMOGLOBIN 10.5 GM/dL (10.7-15.3); MCHC 31.2 g/dl (32.0-36.0); MEAN CELL VOLUME 73.7 fl (80-96); MEAN PLT VOLUME 8.8 fl (7.5-11.1); PLATELET COUNT 332 K/MM3 (134-434); RBC 4.56 M/mm3 (3.60-5.2); WHITE BLOOD COUNT 6.7 K/mm3 (4.0-10.0)
[2020-02-12 17:38] LABS: ALBUMIN 3.5 g/dl (3.4-5.0); BILIRUBIN,TOTAL 0.9 mg/dL (0.2-1); BLOOD UREA NITROGEN 27.7 mg/dL (7-18); CALCIUM 9.4 mg/dL (8.5-10.1); CREATININE 0.8 mg/dL (0.55-1.3); POTASSIUM 4.3 mmol/L (3.5-5.1); TOT PROT 7.5 g/dl (6.4-8.2)
[2020-02-12] MEDS: METHOCARBAMOL 500 MG TABLET PO PRN (19:41)
[2020-02-12] MEDS: THIAMINE HCL 100 MG TABLET (FP) PO SCH (23:00)
[2020-02-12] MEDS: MELATONIN 5 MG TABLETS PO SCH (23:00)
[2020-02-13] MEDS: hydrOXYzine PAMOATE 25 MG CAPSULE (FP) PO SCH ×5 (05:53→22:33)
[2020-02-13] MEDS: metFORMIN HCL 500 MG TABLET (FP) PO SCH ×2 (06:31→16:51)
[2020-02-13] MEDS ORDERED: METHADONE HCL 5 MG TABLET (FOR DETOX USE ONLY) ONE (09:11)
[2020-02-13] MEDS ORDERED: METHADONE HCL 10 MG TABLET (FOR DETOX USE ONLY) ONE (09:12)
[2020-02-13] MEDS ORDERED: METHADONE (DETOX) 20 MG, METHADONE (DETOX) 5 MG PO ONE (10:00)
[2020-02-13] MEDS: LISINOPRIL 20 MG TABLET (FP) PO SCH (10:56)
[2020-02-13] MEDS: NICOTINE 7 MG/24 HOURS TOPICAL PATCH TD SCH (10:57)
[2020-02-13] MEDS: PRENATAL VITAMINS W/ FOLIC ACID TABLET (FP) PO SCH ×2 (10:57→11:06)
[2020-02-13] MEDS: METHOCARBAMOL 500 MG TABLET PO PRN (14:31)
--- NOTE | 2020-02-13 15:15 | PN ---
BHS COWS - Scale Resting Pulse: 0= [place] 80 or Below Sweatin= Chills/Flushing Restless Observation: 1= Difficult to Sit Still Pupil Size: 0= Normal to Room Light Bone or Joint Aches: 2= Severe Diffuse Aches Runny Nose/ Eye Tearin= None GI Upset > 30mins: 0= None Tremor Observation of Outstretched Hands: 2= Slight Tremor Visible BHS Progress Note (SOAP) Subjective: Complaints of chills, tremors,anxiety and body aches. Objective: 02/13/20 15:15 Vital Signs 02/13/20 02/13/20 08:37 12:37 Temperature 97.1 F L 97.8 F Pulse Rate 69 65 Respiratory 16 16 Rate Blood Pressure 146/58 L 132/65 O2 Sat by Pulse 100 Oximetry (%) Laboratory Last Values WBC 6.7 K/mm3 (4.0-10.0) 02/12/20 12:50 RBC 4.56 M/mm3 (3.60-5.2) 02/12/20 12:50 Hgb 10.5 GM/dL (10.7-15.3) L 02/12/20 12:50 Hct 33.6 % (32.4-45.2) 02/12/20 12:50 MCV 73.7 fl (80-96) L 02/12/20 12:50 MCH 23.0 pg (25.7-33.7) L 02/12/20 12:50 MCHC 31.2 g/dl (32.0-36.0) L 02/12/20 12:50 RDW 16.0 % (11.6-15.6) H 02/12/20 12:50 Plt Count 332 K/MM3 (134-434) 02/12/20 12:50 MPV 8.8 fl (7.5-11.1) 02/12/20 12:50 Sodium 139 mmol/L (136-145) 02/12/20 12:50 Potassium 4.3 mmol/L (3.5-5.1) 02/12/20 12:50 Chloride 103 mmol/L (98-107) 02/12/20 12:50 Carbon Dioxide 28 mmol/L (21-32) 02/12/20 12:50 Anion Gap 8 MMOL/L (8-16) 02/12/20 12:50 BUN 27.7 mg/dL (7-18) H 02/12/20 12:50 Creatinine 0.8 mg/dL (0.55-1.3) 02/12/20 12:50 Est GFR (CKD-EPI)AfAm 87.80 02/12/20 12:50 Est GFR (CKD-EPI)NonAf 75.75 02/12/20 12:50 POC Glucometer 103 UNITS (80-120) 02/12/20 16:28 Random Glucose 84 mg/dL (74-106) 02/12/20 12:50 Calcium 9.4 mg/dL (8.5-10.1) 02/12/20 12:50 Total Bilirubin 0.9 mg/dL (0.2-1) 02/12/20 12:50 AST 16 U/L (15-37) 02/12/20 12:50 ALT 16 U/L (13-61) 02/12/20 12:50 Alkaline Phosphatase 92 U/L (45-117) 02/12/20 12:50 Total Protein 7.5 g/dl (6.4-8.2) 02/12/20 12:50 Albumin 3.5 g/dl (3.4-5.0) 02/12/20 12:50 Syphilis Serology Non-reactive (NONREACTIVE) 02/12/20 12:50 Labs noted. Assessment: 02/13/20 15:18 Alert and oriented x 3, in no acute respiratory distress. Full ROM, ambulating in the unit without assistance. Withdrawal symptoms. Plan: Continue detox protocol.
[2020-02-13] MEDS: MELATONIN 5 MG TABLETS PO SCH ×2 (22:30→22:33)
[2020-02-13] MEDS: THIAMINE HCL 100 MG TABLET (FP) PO SCH (22:33)
[2020-02-14] MEDS: hydrOXYzine PAMOATE 25 MG CAPSULE (FP) PO SCH ×5 (05:18→21:35)
[2020-02-14] MEDS: metFORMIN HCL 500 MG TABLET (FP) PO SCH ×2 (08:06→17:08)
[2020-02-14] MEDS ORDERED: METHADONE HCL 10 MG TABLET (FOR DETOX USE ONLY) PO ONE (10:00)
[2020-02-14] MEDS: NICOTINE 7 MG/24 HOURS TOPICAL PATCH TD SCH (10:11)
[2020-02-14] MEDS: LISINOPRIL 20 MG TABLET (FP) PO SCH (10:11)
[2020-02-14] MEDS: PRENATAL VITAMINS W/ FOLIC ACID TABLET (FP) PO SCH (10:12)
[2020-02-14] MEDS: METHOCARBAMOL 500 MG TABLET PO PRN (14:08)
--- NOTE | 2020-02-14 14:27 | PN ---
BHS COWS - Scale Resting Pulse: 0= [place] 80 or Below Sweatin= Chills/Flushing Restless Observation: 1= Difficult to Sit Still Pupil Size: 0= Normal to Room Light Bone or Joint Aches: 1= Mild Discomfort Runny Nose/ Eye Tearin= Runny Nose/Eyes GI Upset > 30mins: 1= Stomach Cramp Tremor Observation of Outstretched Hands: 2= Slight Tremor Visible Yawning Observation: 0= None Anxiety or Irritability: 1=Feels Anxious/Irritable Goose Flesh Skin: 0=Smooth Skin COWS Score: 9 BHS Progress Note (SOAP) Subjective: Stomach cramps. Patient requesting cane for easier ambulation to bathroom. Objective: 02/14/20 14:23 Last Vital Signs Temp Pulse Resp BP Pulse Ox 98.5 F 73 16 138/64 100 02/14/20 13:07 02/14/20 13:07 02/14/20 13:07 02/14/20 13:07 02/14/20 13:07 Elevated b/p noted, has HTN (on med) Laboratory Tests 02/12/20 02/12/20 02/12/20 12:50 12:50 12:50 WBC 6.7 RBC 4.56 Hgb 10.5 L Hct 33.6 MCV 73.7 L MCH 23.0 L MCHC 31.2 L RDW 16.0 H Plt Count 332 MPV 8.8 Sodium Potassium Chloride Carbon Dioxide Anion Gap BUN Creatinine Est GFR (CKD-EPI)AfAm Est GFR (CKD-EPI)NonAf POC Glucometer 74 Random Glucose Calcium Total Bilirubin AST ALT Alkaline Phosphatase Total Protein Albumin Syphilis Serology Non-reactive COVID-19 (JUNIOR) 02/12/20 02/12/20 02/12/20 12:50 12:50 16:28 WBC RBC Hgb Hct MCV MCH MCHC RDW Plt Count MPV Sodium 139 Potassium 4.3 Chloride 103 Carbon Dioxide 28 Anion Gap 8 BUN 27.7 H Creatinine 0.8 Est GFR (CKD-EPI)AfAm 87.80 Est GFR (CKD-EPI)NonAf 75.75 POC Glucometer 103 Random Glucose 84 Calcium 9.4 Total Bilirubin 0.9 AST 16 ALT 16 Alkaline Phosphatase 92 Total Protein 7.5 Albumin 3.5 Syphilis Serology COVID-19 (JUNIOR) Not detected 02/13/20 16:39 WBC RBC Hgb Hct MCV MCH MCHC RDW Plt Count MPV Sodium Potassium Chloride Carbon Dioxide Anion Gap BUN Creatinine Est GFR (CKD-EPI)AfAm Est GFR (CKD-EPI)NonAf POC Glucometer 108 Random Glucose Calcium Total Bilirubin AST ALT Alkaline Phosphatase Total Protein Albumin Syphilis Serology COVID-19 (JUNIOR) Labs reviewed: bun high Assessment: 02/14/20 14:23 Withdrawal sxs Noted with azotemia Plan: Continue detox Provide cane for easier mobility to bathroom (patient's request) Azotemia: encourage PO water hydration HTN: monitor b/p, continue lisinopril FS glucose BID ordered as patient with DM and is on metformin
[2020-02-14] MEDS: SUVOREXANT 10 MG TABLET PO PRN (21:35)
[2020-02-14] MEDS: THIAMINE HCL 100 MG TABLET (FP) PO SCH (21:36)
[2020-02-14] MEDS: MELATONIN 5 MG TABLETS PO SCH ×2 (21:36→23:40)
[2020-02-14] MEDS: ACETAMINOPHEN 325 MG TABLET (FP) PO PRN (22:17)
[2020-02-15] MEDS: hydrOXYzine PAMOATE 25 MG CAPSULE (FP) PO SCH ×5 (06:06→21:26)
[2020-02-15] MEDS: metFORMIN HCL 500 MG TABLET (FP) PO SCH ×2 (06:06→17:00)
[2020-02-15] MEDS ORDERED: METHADONE HCL 5 MG TABLET (FOR DETOX USE ONLY) ONE (09:18)
[2020-02-15] MEDS ORDERED: METHADONE HCL 10 MG TABLET (FOR DETOX USE ONLY) ONE (09:19)
[2020-02-15] MEDS ORDERED: METHADONE (DETOX) 10 MG, METHADONE (DETOX) 5 MG PO ONE (10:00)
[2020-02-15] MEDS: NICOTINE 7 MG/24 HOURS TOPICAL PATCH TD SCH (10:52)
[2020-02-15] MEDS: PRENATAL VITAMINS W/ FOLIC ACID TABLET (FP) PO SCH (10:52)
[2020-02-15] MEDS: LISINOPRIL 20 MG TABLET (FP) PO SCH (10:53)
--- NOTE | 2020-02-15 14:25 | PN ---
BHS COWS - Scale Resting Pulse: 0= [place] 80 or Below Sweatin= No chills or Flushing Restless Observation: 0= Sits Still Pupil Size: 0= Normal to Room Light Bone or Joint Aches: 1= Mild Discomfort Runny Nose/ Eye Tearin= Nasal Congestion GI Upset > 30mins: 1= Stomach Cramp Tremor Observation of Outstretched Hands: 2= Slight Tremor Visible Yawning Observation: 0= None Anxiety or Irritability: 2=Irritable/Anxious Goose Flesh Skin: 0=Smooth Skin COWS Score: 7 BHS Progress Note (SOAP) Subjective: alert,irritable,anxious,interrupted sleep,pain in the body and back,poor appetite,insomnia Objective: 02/15/20 14:20 Vital Signs Temperature 97.5 F L 02/15/20 12:48 Pulse Rate 61 02/15/20 12:48 Respiratory Rate 18 02/15/20 12:48 Blood Pressure 117/66 02/15/20 12:48 O2 Sat by Pulse Oximetry (%) 100 02/15/20 12:48 Assessment: 02/15/20 14:21 withdrawal symptom Plan: continue detox methadone regimen,psychiatric consultation for insomnia,glucerna 1 can po bid
--- NOTE | 2020-02-15 16:48 | PN ---
S Progress Note Note: Patient does not want BGM done and refusing. Vital Signs - 24 hr 02/15/20 02/15/20 02/15/20 05:55 09:18 12:48 Temperature 96.6 F L 97.5 F L 97.5 F L Pulse Rate 56 L 64 61 Respiratory 18 18 18 Rate Blood Pressure 115/56 L 117/65 117/66 O2 Sat by Pulse 100 100 100 Oximetry (%) BGM's reviewed and stable while on metformin. Plan: Will d/c BGM Continue Metformin.
[2020-02-15] MEDS: METHOCARBAMOL 500 MG TABLET PO PRN (18:05)
[2020-02-15] MEDS: SUVOREXANT 10 MG TABLET PO PRN (21:27)
[2020-02-15] MEDS: THIAMINE HCL 100 MG TABLET (FP) PO SCH (21:27)
[2020-02-15] MEDS: MELATONIN 5 MG TABLETS PO SCH (21:58)
[2020-02-16] MEDS: hydrOXYzine PAMOATE 25 MG CAPSULE (FP) PO SCH (06:28)
[2020-02-16] MEDS: metFORMIN HCL 500 MG TABLET (FP) PO SCH ×2 (06:28→17:25)
[2020-02-16] MEDS ORDERED: METHADONE HCL 10 MG TABLET (FOR DETOX USE ONLY) PO ONE (10:00)
--- NOTE | 2020-02-16 10:51 | PN ---
BHS COWS - Scale Resting Pulse: 0= [place] 80 or Below Sweatin= Chills/Flushing Restless Observation: 0= Sits Still Pupil Size: 0= Normal to Room Light Bone or Joint Aches: 1= Mild Discomfort Runny Nose/ Eye Tearin= None GI Upset > 30mins: 0= None Tremor Observation of Outstretched Hands: 1= Tremor [place], Not Seen Yawning Observation: 0= None Anxiety or Irritability: 1=Feels Anxious/Irritable Goose Flesh Skin: 0=Smooth Skin COWS Score: 4 BHS Progress Note (SOAP) Subjective: sweats interrupted sleep Objective: 02/16/20 10:48 Vital Signs Temperature 97.8 F 02/16/20 09:09 Pulse Rate 63 02/16/20 09:09 Respiratory Rate 18 02/16/20 09:09 Blood Pressure 126/56 L 02/16/20 09:09 O2 Sat by Pulse Oximetry (%) 96 02/16/20 09:09 aaox3 ambulating with rollator safely colostomy bag noted; stoma clean beefy red, light brown colored stool noted, pt states she is able to change bag herself. Assessment: 02/16/20 10:50 mild withdrawals Plan: continue and complete detox increase fluids trazadone 50mg q hs x one d/c in am
[2020-02-16] MEDS: NICOTINE 7 MG/24 HOURS TOPICAL PATCH TD SCH (11:01)
[2020-02-16] MEDS: PRENATAL VITAMINS W/ FOLIC ACID TABLET (FP) PO SCH (11:02)
[2020-02-16] MEDS: LISINOPRIL 20 MG TABLET (FP) PO SCH (11:02)
[2020-02-16] MEDS: ACETAMINOPHEN 325 MG TABLET (FP) PO PRN ×2 (12:22→18:47)
[2020-02-16] MEDS: hydrOXYzine PAMOATE 25 MG CAPSULE (FP) PO PRN ×2 (17:26→22:34)
[2020-02-16] MEDS: METHOCARBAMOL 500 MG TABLET PO PRN (17:26)
[2020-02-16] MEDS ORDERED: traZODone HCL 50 MG TABLET (FP) PO SCH ×2 (22:00)
[2020-02-16] MEDS: THIAMINE HCL 100 MG TABLET (FP) PO SCH (22:33)
[2020-02-17] MEDS ORDERED: METHADONE HCL 5 MG TABLET (FOR DETOX USE ONLY) PO ONE (06:00)
[2020-02-17] MEDS: METHOCARBAMOL 500 MG TABLET PO PRN (06:13)
[2020-02-17] MEDS: metFORMIN HCL 500 MG TABLET (FP) PO SCH (08:14)
--- NOTE | 2020-02-17 08:35 | DS ---
[facility] Detox Discharge Summary Admission Date: 02/12/20 Discharge Date: 02/17/20 - History Present History: Alcohol Dependence, Opioid Dependence - Physical Exam Results Vital Signs: Vital Signs Temperature 96.9 F L 02/17/20 05:55 Pulse Rate 53 L 02/17/20 05:55 Respiratory Rate 02/17/20 05:55 Blood Pressure 130/74 02/17/20 05:55 O2 Sat by Pulse Oximetry (%) 98 02/17/20 05:55 Pertinent Admission Physical Exam Findings: Vital Signs Temperature 96.9 F L 02/17/20 05:55 Pulse Rate 53 L 02/17/20 05:55 Respiratory Rate 02/17/20 05:55 Blood Pressure 130/74 02/17/20 05:55 O2 Sat by Pulse Oximetry (%) 98 02/17/20 05:55 Laboratory Tests 02/12/20 02/12/20 02/12/20 12:50 12:50 12:50 WBC 6.7 RBC 4.56 Hgb 10.5 L Hct 33.6 MCV 73.7 L MCH 23.0 L MCHC 31.2 L RDW 16.0 H Plt Count 332 MPV 8.8 Sodium Potassium Chloride Carbon Dioxide Anion Gap BUN Creatinine Est GFR (CKD-EPI)AfAm Est GFR (CKD-EPI)NonAf POC Glucometer 74 Random Glucose Calcium Total Bilirubin AST ALT Alkaline Phosphatase Total Protein Albumin Syphilis Serology Non-reactive COVID-19 (JUNIOR) 02/12/20 02/12/20 02/12/20 12:50 12:50 16:28 WBC RBC Hgb Hct MCV MCH MCHC RDW Plt Count MPV Sodium 139 Potassium 4.3 Chloride 103 Carbon Dioxide 28 Anion Gap 8 BUN 27.7 H Creatinine 0.8 Est GFR (CKD-EPI)AfAm 87.80 Est GFR (CKD-EPI)NonAf 75.75 POC Glucometer 103 Random Glucose 84 Calcium 9.4 Total Bilirubin 0.9 AST 16 ALT 16 Alkaline Phosphatase 92 Total Protein 7.5 Albumin 3.5 Syphilis Serology COVID-19 (JUNIOR) Not detected 02/13/20 02/14/20 16:39 16:40 WBC RBC Hgb Hct MCV MCH MCHC RDW Plt Count MPV Sodium Potassium Chloride Carbon Dioxide Anion Gap BUN Creatinine Est GFR (CKD-EPI)AfAm Est GFR (CKD-EPI)NonAf POC Glucometer 108 102 Random Glucose Calcium Total Bilirubin AST ALT Alkaline Phosphatase Total Protein Albumin Syphilis Serology COVID-19 (JUNIOR) labs noted aaox3 ambulating no acute distress lungs CTA - Treatment Hospital Course: Detox Protocol Followed, Detoxed Safely, Responded well, Discharged Condition Good, Rehab Referral Accepted - Medication Discharge Medications: Ambulatory Orders metFORMIN HCL [Glucophage -] 500 mg PO BID #60 tablet 05/21/15 Lisinopril [Prinivil -] 40 mg PO DAILY 04/14/19 - Diagnosis (1) Opioid dependence with withdrawal Current Visit: Yes Status: Chronic (2) Asthma Current Visit: Yes Status: Chronic Qualifiers: Asthma severity: mild Asthma persistence: intermittent Asthma complication type: with status asthmaticus Qualified Code(s): J45.22 - Mild intermittent asthma with status asthmaticus (3) Hypertension Current Visit: Yes Status: Chronic Qualifiers: Hypertension type: essential hypertension (4) Nicotine dependence Current Visit: Yes Status: Chronic Qualifiers: Nicotine product type: cigarettes Substance use status: uncomplicated Qualified Code(s): F17.210 - Nicotine dependence, cigarettes, uncomplicated (5) PTSD (post-traumatic stress disorder) Current Visit: Yes Status: Chronic (6) S/P small bowel resection Current Visit: Yes Status: Chronic (7) Walker as ambulation aid Current Visit: Yes Status: Chronic (8) History of angina Current Visit: Yes Status: Resolved (9) Substance induced mood disorder Current Visit: No Status: Acute (10) Substance-induced sleep disorder Current Visit: No Status: Acute (11) Depressive disorder Current Visit: No Status: Chronic (12) Low back pain on right side with sciatica Current Visit: No Status: Chronic (13) MDD (major depressive disorder), recurrent episode, moderate Current Visit: No Status: Chronic (14) Major depression, recurrent Current Visit: No Status: Chronic Qualifiers: Major depression episode severity: unspecified Qualified Code(s): F33.9 - Major depressive disorder, recurrent, unspecified (15) Obesity Current Visit: No Status: Chronic Qualifiers: Obesity type: unspecified obesity type (16) Type II diabetes mellitus Current Visit: No Status: Chronic Qualifiers: 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
[2020-02-17 09:17] VITALS: BP 115/68; PULSE 78; TEMP 97.3
[2020-02-17] MEDS: LISINOPRIL 20 MG TABLET (FP) PO SCH (10:31)
[2020-02-17] MEDS: PRENATAL VITAMINS W/ FOLIC ACID TABLET (FP) PO SCH (10:32)
[2020-02-17] MEDS: NICOTINE 7 MG/24 HOURS TOPICAL PATCH TD SCH (10:32)
== END 2020-02-17 12:03 | disposition home or self-care (01) | DRG 897 ==
LOC: YASAS 10:29 → Y6N 12:57
PROVIDERS: ADMIT Allergy & Immunology; ATTEND Allergy & Immunology
PROC: HZ2ZZZZ Detoxification Services for Substance Abuse Treatment (ICD-10-PCS; principal; 2020-02-12)
DX: F11.23 Opioid dependence with withdrawal (principal); F19.282 Other psychoactive substance dependence with psychoactive substance-induced sleep disorder; J45.22 Mild intermittent asthma with status asthmaticus; F33.1 Major depressive disorder, recurrent, moderate; F17.210 Nicotine dependence, cigarettes, uncomplicated; F19.24 Other psychoactive substance dependence with psychoactive substance-induced mood disorder; F43.10 Post-traumatic stress disorder, unspecified; I10 Essential (primary) hypertension; E78.5 Hyperlipidemia, unspecified; E11.9 Type 2 diabetes mellitus without complications; Z79.84 Long term (current) use of oral hypoglycemic drugs; M54.41 Lumbago with sciatica, right side; R79.89 Other specified abnormal findings of blood chemistry; R26.2 Difficulty in walking, not elsewhere classified; Z62.810 Personal history of physical and sexual abuse in childhood; Z86.79 Personal history of other diseases of the circulatory system; Z99.89 Dependence on other enabling machines and devices; Z98.890 Other specified postprocedural states; Z90.710 Acquired absence of both cervix and uterus; Z93.3 Colostomy status; Z90.49 Acquired absence of other specified parts of digestive tract; Z91.410 Personal history of adult physical and sexual abuse
CPT/HCPCS: 36415; 80053; 82962; 85027; 86780; J0735; Q0162; U0003

== ENCOUNTER 2020-09-17 13:43 | Inpatient (IN) | payer OTHER ==
[2020-09-17 16:08] VITALS: BMI 32.3
[2020-09-17] MEDS ORDERED: IBUPROFEN 400 MG TABLET (FP) PO PRN (18:59)
[2020-09-17] MEDS ORDERED: NICOTINE POLACRILEX 2 MG GUM BUC PRN (18:59)
[2020-09-17] MEDS ORDERED: ACETAMINOPHEN 325 MG TABLET (FP) PO PRN ×2 (18:59)
[2020-09-17] MEDS ORDERED: METHADONE HCL 10 MG TABLET (FOR DETOX USE ONLY) PO ONE (18:59)
[2020-09-17] MEDS ORDERED: MENTHOL/PHENOL 1 EACH UD MM PRN (18:59)
[2020-09-17] MEDS ORDERED: MAGNESIUM CITRATE 300 ML BOTTLE PO PRN (18:59)
[2020-09-17] MEDS ORDERED: BISMUTH SUBSALICYLATE 524 MG/30 ML UD PO PRN (18:59)
[2020-09-17] MEDS ORDERED: cloNIDine HCL 0.1 MG TABLET PO PRN (18:59)
[2020-09-17] MEDS ORDERED: MAG HYDROX/AL HYDROX/SIMETH 30 ML UNIT-DOSE CUP PO PRN (18:59)
[2020-09-17] MEDS ORDERED: MAGNESIUM HYDROX 2400MG/30ML ORAL SUSPENSION 30 ML CUP PO PRN (18:59)
[2020-09-17] MEDS ORDERED: METHOCARBAMOL 500 MG TABLET PO PRN (18:59)
[2020-09-17] MEDS ORDERED: THIAMINE HCL 100 MG TABLET (FP) PO SCH (22:00)
[2020-09-17] MEDS ORDERED: MELATONIN 5 MG TABLETS PO SCH (22:00)
[2020-09-18 06:48] VITALS: BP 129/81; PULSE 60; TEMP 97.7
[2020-09-18] MEDS ORDERED: METHADONE HCL 5 MG TABLET (FOR DETOX USE ONLY) ONE (09:13)
[2020-09-18] MEDS ORDERED: METHADONE HCL 10 MG TABLET (FOR DETOX USE ONLY) ONE (09:13)
[2020-09-18 09:57] LABS: POTASSIUM 4.6 mmol/L (3.5-5.1)
[2020-09-18] MEDS ORDERED: METHADONE (DETOX) 20 MG, METHADONE (DETOX) 5 MG PO ONE (10:00)
[2020-09-18] MEDS ORDERED: PRENATAL VITAMINS W/ FOLIC ACID TABLET (FP) PO SCH (10:00)
[2020-09-18] MEDS ORDERED: NICOTINE 7 MG/24 HOURS TOPICAL PATCH TD SCH (10:00)
[2020-09-18] MEDS ORDERED: LISINOPRIL 20 MG TABLET PO SCH (10:00)
[2020-09-18 10:05] LABS: HEMOGLOBIN 10.8 GM/dL (10.7-15.3); MCH 24.7 pg (25.7-33.7); MCHC 32.8 g/dl (32.0-36.0); MEAN CELL VOLUME 75.4 fl (80-96); MEAN PLT VOLUME 8.3 fl (7.5-11.1); PLATELET COUNT 257 K/MM3 (134-434); RBC 4.37 M/mm3 (3.60-5.2); RDW 19.5 % (11.6-15.6); WHITE BLOOD COUNT 5.6 K/mm3 (4.0-10.0)
[2020-09-18 10:11] LABS: ALBUMIN 2.9 g/dl (3.4-5.0); BLOOD UREA NITROGEN 19.8 mg/dL (7-18); CALCIUM 8.6 mg/dL (8.5-10.1)
[2020-09-18 10:14] LABS: CREATININE 0.7 mg/dL (0.55-1.3)
[2020-09-18 10:16] LABS: BILIRUBIN,TOTAL 1.4 mg/dL (0.2-1); TOT PROT 6.2 g/dl (6.4-8.2)
[2020-09-18 10:56] LABS: HIV INTERPRETATION NEGATIVE (NEGATIVE)
[2020-09-19] MEDS ORDERED: METHADONE HCL 10 MG TABLET (FOR DETOX USE ONLY) PO ONE (10:00)
[2020-09-19] MEDS ORDERED: FLU VACCINE (FLULAVAL) PF 60 MCG/0.5 ML SYRINGE 2020-2021 IM ONE (12:00)
[2020-09-20] MEDS ORDERED: METHADONE (DETOX) 10 MG, METHADONE (DETOX) 5 MG PO ONE (10:00)
[2020-09-21] MEDS ORDERED: METHADONE HCL 10 MG TABLET (FOR DETOX USE ONLY) PO ONE (10:00)
[2020-09-22] MEDS ORDERED: METHADONE HCL 5 MG TABLET (FOR DETOX USE ONLY) PO ONE (06:00)
== END 2020-09-18 12:21 | disposition left against medical advice (07) | DRG 770 ==
LOC: YASAS 13:43 → Y3N 17:14 → Y6N 18:10
PROVIDERS: ADMIT Allergy & Immunology; ATTEND Allergy & Immunology
PROC: HZ2ZZZZ Detoxification Services for Substance Abuse Treatment (ICD-10-PCS; principal; 2020-09-17)
DX: F11.23 Opioid dependence with withdrawal (principal); F17.210 Nicotine dependence, cigarettes, uncomplicated; F19.24 Other psychoactive substance dependence with psychoactive substance-induced mood disorder; F43.10 Post-traumatic stress disorder, unspecified; I10 Essential (primary) hypertension; J45.20 Mild intermittent asthma, uncomplicated; E11.42 Type 2 diabetes mellitus with diabetic polyneuropathy; Z79.84 Long term (current) use of oral hypoglycemic drugs; E78.5 Hyperlipidemia, unspecified; M54.41 Lumbago with sciatica, right side; Z96.653 Presence of artificial knee joint, bilateral; Z62.810 Personal history of physical and sexual abuse in childhood; E66.9 Obesity, unspecified; Z68.32 Body mass index [BMI] 32.0-32.9, adult; Z99.89 Dependence on other enabling machines and devices; Z90.49 Acquired absence of other specified parts of digestive tract; Z90.710 Acquired absence of both cervix and uterus
CPT/HCPCS: 36415; 80053; 82962; 85027; 86780; 87389; C9803; J0735; U0003